=== PATIENT | female | born 1950 | race Caucasian/White ===

== ENCOUNTER 2020-01-31 15:56 | Emergency (ER) | payer OTHER ==
[~2020-01-31] VITALS: Ht 165.1 cm; Wt 90.3 kg
--- NOTE | ~2020-01-31 | EKG ---
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
[2020-01-31] MEDS ORDERED: CARBIDOPA-LEVO1 EAC8 PO (16:19)
[2020-01-31] MEDS ORDERED: HYDROCHLOROTHIA25 M2 PO (16:20)
[2020-01-31] MEDS ORDERED: CLONAZEPAM 0.50.5 M1 PO (16:20)
[2020-01-31] MEDS ORDERED: MELOXICAM7.5 MG PO (16:20)
[2020-01-31] MEDS ORDERED: SERTRALINE HCL100 MG PO (16:20)
[2020-01-31] MEDS ORDERED: CARBIDOPA-LEVO1 EA10 PO (16:20)
[2020-01-31] MEDS ORDERED: ROPINIROLE HCL2 MG PO (16:20)
[2020-01-31] MEDS ORDERED: SENTRY SENIOR1 EAC1 PO (16:21)
[2020-01-31] MEDS ORDERED: OMEPRAZOLE 20 M20 M1 PO (16:21)
[2020-01-31] MEDS ORDERED: GOCOVRI68.5 MG PO (16:21)
[2020-01-31] MEDS ORDERED: APRODINE TABLE1 EACH PO (16:22)
[2020-01-31 17:17] LABS: ABSOLUTE BASOPHILS 0.1 thou/uL (0.0-0.2); ABSOLUTE EOSINOPHILS 0.2 thou/uL (0.0-0.7); ABSOLUTE LYMPHOCYTES 1.5 thou/uL (0.8-5.3); ABSOLUTE MONOCYTES 0.8 thou/uL (0.0-1.2); ABSOLUTE NEUTROPHILS 5.3 thou/uL (1.6-8.1); BASOPHILS 1.1 %; EOSINOPHILS 2.2 %; HEMATOCRIT 40.8 % (37.0-47.0); HEMOGLOBIN 13.9 gm/dL (12.0-15.0); LYMPHOCYTES 19.5 %; MCH 29.4 pg (26.0-34.0); MCV 86.4 fL (80.0-100.0); MONOCYTES 10.2 %; MPV 7.7 fl. (7.2-11.1); NUCLEATED RBCS 0 /100WBC; PLATELET COUNT* 258 thou/uL (150-400); RBC 4.72 mil/uL (4.20-5.00); RDW-CV 13.2 % (10.5-14.5); WBC 7.9 thou/uL (4.0-11.0)
[2020-01-31 17:25] LABS: CALCIUM 8.6 mg/dL (8.5-10.1); CREATININE 1.1 mg/dL (0.6-1.3)
[2020-01-31 17:26] LABS: POTASSIUM 2.9 mmol/L (3.5-5.1)
[2020-01-31 17:30] LABS: TOTAL BILIRUBIN 0.6 mg/dL (<0.1-1.0); TOTAL PROTEIN 7.4 g/dL (6.4-8.2)
[2020-01-31] MEDS ORDERED: POTASSIUM20 PO (18:30)
[2020-01-31] MEDS ORDERED: AUGMENTIN 500-1 EACH PO (18:31)
[2020-01-31] MEDS ORDERED: NORCO 5-325 TA1 EAC2 PO (18:31)
[2020-01-31 19:47] VITALS: BP 123/73
[2020-01-31 20:12] LABS: URINE BILIRUBIN NEGATIVE (Negative); URINE BLOOD NEGATIVE (Negative); URINE CLARITY CLOUDY; URINE COLOR YELLOW; URINE GLUCOSE-RANDOM NEGATIVE (Negative); URINE KETONES NEGATIVE (Negative); URINE LEUKOCYTES-REFLEX NEGATIVE (Negative); URINE PROTEIN NEGATIVE (Negative); URINE SPECIFIC GRAVITY >= 1.030 (1.005-1.030); URINE UROBILINOGEN 0.2 E.U./dl (0.2-1.0)
[2020-01-31 20:13] LABS: URINE NITRITE-REFLEX POSITIVE (Negative)
[2020-01-31 20:27] LABS: BACTERIA-REFLEX >30 Many /HPF (None Seen); SQUAMOUS >10 Many /LPF (0-3); URINE RBC 0-2 Rare /HPF (0-2); URINE WBC-REFLEX 6-15 Few /HPF (0-5)
[2020-01-31 20:28] LABS: CASTS None Seen /LPF (None Seen); CRYSTALS None Seen /LPF (None Seen)
== END 2020-01-31 19:41 | disposition home or self-care (01) ==
LOC: M.ERS 15:56
PROVIDERS: Physician Assistant
DX: S02.2XXA Fracture of nasal bones, initial encounter for closed fracture (principal); J32.9 Chronic sinusitis, unspecified; E87.6 Hypokalemia; Z90.49 Acquired absence of other specified parts of digestive tract; Z90.710 Acquired absence of both cervix and uterus; Z79.899 Other long term (current) drug therapy; W18.39XA Other fall on same level, initial encounter; Y93.89 Activity, other specified; Y92.89 Other specified places as the place of occurrence of the external cause; Y99.8 Other external cause status